=== PATIENT | male | born 1985 | race Two or more races ===

== ENCOUNTER 2024-07-27 13:31 | Emergency (ER) | payer OTHER ==
[~2024-07-27] VITALS: Ht 175.3 cm; Wt 88.5 kg
[2024-07-27] MEDS ORDERED: FENOFIBRATE160 MG PO (14:27)
[2024-07-27] MEDS ORDERED: ROSUVASTATIN CA40 MG PO (14:27)
[2024-07-27] MEDS ORDERED: KETOROLAC TROMETHAMINE 30 MG VIAL IV ONE (15:00)
[2024-07-27] MEDS ORDERED: CEFTRIAXONE SODIUM 1,000 MG VIAL IV ONE (15:15)
[2024-07-27 16:19] LABS: HEMATOCRIT 44.7 % (39.0-48.0); HEMOGLOBIN 15.3 g/dL (13-16.00); MEAN CELL VOLUME 87.9 fL (80.0-100.00); MEAN CORPUSCULAR HEMOGLOBIN 30.1 pg (27.00-32.0); MEAN CORPUSCULAR HGB CONC 34.3 g/dl (32.0-36.0); PLATELET COUNT 345 K/uL (150-450); RED BLOOD COUNT 5.09 M/uL (4.00-6.00); RED CELL DISTRIBUTION WIDTH 13.7 % (11.5-14.5)
[2024-07-27 16:34] LABS: PROTHROMBIN TIME 10.9 SECONDS (9.0-11.5)
[2024-07-27 16:38] LABS: ERYTHROCYTE SEDIMENTATION RATE 29 mm/hr
[2024-07-27 16:43] LABS: ALBUMIN 4.3 gm/dL (3.4-5.0); BILIRUBIN TOTAL 0.58 mg/dL (0.3-1.2); CALCIUM 9.7 mg/dL (8.5-10.1); CREATININE SERUM 1.1 mg/dL (0.70-1.30); GFR 74.14; GLOBULINA 3.5 G/DL (2.4-3.5); POTASSIUM 4.28 mEq/L (3.5-5.1); TOTAL PROTEIN 7.8 gm/dL (6.4-8.2)
[2024-07-27 16:52] LABS: D DIMER 0.29 MG/L; PARTIAL THROMBOPLASTIN TIME 30.2 SECONDS (22.0-34.0)
== END 2024-07-27 20:00 ==
LOC: ER 13:34
PROVIDERS: Nurse Practitioner Family
DX: M25.461 Effusion, right knee (principal); M25.561 Pain in right knee; Z20.822 Contact with and (suspected) exposure to COVID-19; I10 Essential (primary) hypertension